=== PATIENT | female | born 1955 | race African-American/Black ===

== ENCOUNTER → 2016-07-30 | Outpatient (CLI) | payer MEDICARE, MEDICAID | END | disposition home or self-care (01) | LOC: RT 15:26 | PROVIDERS: ATTEND Internal Medicine Pulmonary Disease | DX: J44.9 Chronic obstructive pulmonary disease, unspecified (principal) | CPT/HCPCS: 36600; 82805 ==

== ENCOUNTER → 2016-10-23 | Outpatient (CLI) | payer MEDICARE, MEDICAID | END | disposition home or self-care (01) | LOC: RT 08:53 | PROVIDERS: ATTEND Internal Medicine Pulmonary Disease | DX: J44.9 Chronic obstructive pulmonary disease, unspecified (principal) | CPT/HCPCS: 94060; 94640 ==

== ENCOUNTER → 2018-08-03 | Day surgery (SDC) | payer OTHER, MEDICAID ==
[2018-08-02 10:51] LABS: Urine Bacteria NONE SEEN /hpf (None Seen); Urine Blood Negative /uL (Negative); Urine Mucus FEW (None Seen); Urine Specific Gravity 1.017 (1.001-1.035); Urine WBC 1 /hpf (0 - 5)
[2018-08-02 10:55] LABS: Eosinophils # (auto) 0.2 uL; Hemoglobin 12.8 g/dL (12.2-16.2); Monocytes # (auto) 0.6 uL; Nucleated Red Blood Cells % 0.2 %; White Blood Cell 8.9 10^3/uL (4.4-10.8)
[2018-08-02 10:58] LABS: Basophils # (auto) 0.1 uL; Basophils % (auto) 0.7 % (0.0-2.0); Eosinophils % (auto) 2.3 % (0.0-7.0); Hematocrit 41.9 % (36.0-46.0); Lymphocytes # (auto) 2.9 uL; Mean Corpuscular Hemoglobin 20.8 pg (28.0-32.0); Mean Corpuscular Hgb Conc. 30.5 g/dL (32.0-36.0); Mean Corpuscular Volume 68.1 fL (80.0-100.0); Monocytes % (auto) 6.2 % (0.0-12.0); Neutrophils # (auto) 5.2 uL; Neutrophils % (auto) 57.8 % (37.0-80.0); Platelet Count (auto) 358 10^3/uL (140-450); Red Blood Cells 6.15 10^6/uL (4.0-5.20); Red Cell Distribution Width 18.5 % (11.8-14.3)
[2018-08-02 11:14] LABS: INR 0.98 (0.9-1.15); Partial Thromboplastin Time 28.9 sec (23.78-33.04); Prothrombin Time 10.5 sec (9.27-12.13)
[2018-08-02 11:17] LABS: Albumin 3.1 g/dL (3.4-5.0); Calcium 9.3 mg/dL (8.5-10.1); Potassium 3.9 mmol/L (3.5-5.1)
[2018-08-02 11:22] LABS: BUN/Creatinine Ratio 15.3; Bilirubin, Total 0.4 mg/dL (0.2-1.0)
[~2018-08-03] VITALS: Ht 160 cm; Wt 87.5 kg
[~2018-08-03] MED LIST: ALBUAER3 IN; ALLO100T PO; ASPI81TA27 PO; BUPIVACAINE 0.75% INJ 10ML MPV SDV IJ ONE; DIGO0.1262 PO; ENAL5TAB PO; FERR-20 PO; HYDR12.56 PO; HYDROmorphone HCL 2 MG/ML VL IV PRN; KETAMINE HCL 1 ML ONE; LIDOCAINE HCL 100 MG/5ML (2%) SYRG INJ IV ONE; MET50T PO; METOCLOPRAMIDE HCL 5MG/ml INJ 2ml VIAL ONE; MIDAZOLAM HCL 1MG/1ML-2 ML VIAL ONE; NALOXONE HCL 0.4 MG/ML VIAL IV PRN; OMEP20TA PO; ONDANSETRON HCL 4 MG/2 ML VIAL IV ONE; PHENYLEPHRINE HCL 10 MG/ML VL ONE; PROPOFOL 10 MG/ML 20 ML IV ONE; SIMV-13 PO; TRAZ50TA2 PO; UMEC1AER IN; ceFAZolin 1GM/50ML 50 ML IV ONE; diphenhdrAMINE HCL 50 MG/1 ML VL ONE
[2018-08-03 11:37] VITALS: BP 126/85
== END | disposition home or self-care (01) ==
LOC: SUR 09:04
PROVIDERS: ATTEND Podiatrist Foot & Ankle Surgery
DX: S92.912D Unspecified fracture of left toe(s), subsequent encounter for fracture with routine healing (principal); E66.9 Obesity, unspecified; J44.9 Chronic obstructive pulmonary disease, unspecified; K21.9 Gastro-esophageal reflux disease without esophagitis; I10 Essential (primary) hypertension; I49.8 Other specified cardiac arrhythmias; G47.33 Obstructive sleep apnea (adult) (pediatric); J45.909 Unspecified asthma, uncomplicated; I25.10 Atherosclerotic heart disease of native coronary artery without angina pectoris; Z68.34 Body mass index [BMI] 34.0-34.9, adult; Z98.890 Other specified postprocedural states; X58.XXXA Exposure to other specified factors, initial encounter; Y93.89 Activity, other specified; Y92.89 Other specified places as the place of occurrence of the external cause; Y99.8 Other external cause status
CPT/HCPCS: 28124; 36415; 80053; 81001; 85025; 85610; 85730; J0690; J1200; J2250; J2704; J2765; J3490; J7030; Q4137